=== PATIENT | male | born 1940 | race Caucasian/White ===

== ENCOUNTER 2017-08-28 08:05 | Emergency (ER) | payer OTHER, MEDICARE ==
[~2017-08-28] VITALS: Ht 180.3 cm; Wt 59.9 kg
[~2017-08-28 08:05] MED LIST: KEFLEX500 M1 PO
--- NOTE | 2017-08-28 09:53 | ED DYSPNEA/ASTHMA COMPLAINT ---
History of Present Illness General Chief Complaint: Dyspnea (COPD, CHF, Other) Stated Complaint: SOB, X 1 WEEK Source: patient, old records Exam Limitations: no limitations Vital Signs & Intake/Output Vital Signs & Intake/Output Vital Signs Date Time Temp Pulse Resp B/P B/P Pulse O2 O2 Flow FiO2 Mean Ox Delivery Rate 08/28 1255 99.0 80 20 187/94 94 Room Air 08/28 1059 98.9 74 20 190/88 96 Room Air 08/28 1049 96 Room Air Room Air 08/28 1015 95 08/28 0815 97.3 63 20 183/69 96 Room Air Allergies Coded Allergies: No Known Allergies (07/18/17) Reconcile Medications Albuterol Sulfate (Proair Hfa) 90 MCG HFA.AER.AD 2 PUF INH Q4-6 PRN PRN wheezing Methylprednisolone. (Medrol) 4 MG TAB.DS.PK 1 DP PO AD wheezing 6 on day 1 then reduce by one tablet daily until gone Tamsulosin HCl 0.4 MG CAP.ER.24H 1 CAP PO DAILY urine (Reported) Triage Note: PT TO ED C/O DIFFICULTY BREATHING SINCE THIS AM. STATES HE WAS GETTING UP OOB AND FELT SOB. DENIES ANY PAIN OR C/P. EKG DONE. RA SATS 96%. PT IN NO OBVIOUS RESP DISTRESS. Triage Nurses Notes Reviewed? yes HPI: 77-year-old male with no known medical history active smoker 1 pack per day presents to the ER for evaluation with family saying over the past few weeks she 's had progressively worsening shortness of breath worse with exertion, better at rest. He denies any associated chest pain. Patient reports her chronic nonproductive cough. He has not sought care for the symptoms until today. He denies any abdominal pain nausea vomiting leg swelling recent immobility. No hemoptysis. No dizziness lightheadedness no recent fevers or chills. (Fernando Hawley) Past History Travel History Traveled to [place] past 21 day No Medical History Any Pertinent Medical History? see below for history Surgical History Surgical History: none Psychosocial History What is your primary language Hebrew Tobacco Use: Quit <30 days ago ETOH Use: denies use Illicit Drug Use: denies illicit drug use Family History Hx Contributory? No (Fernando Hawley) Review of Systems Review of Systems Constitutional: Reports: no symptoms, see HPI. Comments Review of systems: See HPI, All other systems negative. Constitutional, no chills no fever HEENT: no sore throat no congestion Cardiovascular: No chest pain Skin: no rashes, no change in skin Respiratory: dyspnea cough no sputum GI: No nausea no vomiting, no diarrhea Muscle skeletal: No joint pain, no back pain, no neck pain, Neurologic: , no headache Psych: No stress Heme/endocrine: No bruising Immunology: No lymphadenopathy (Fernando Hawley) Physical Exam Physical Exam General Appearance: well developed/nourished, no apparent distress, alert, awake Respiratory: wheezing Comments: Well-developed well-nourished person in no acute distress HEENT: Normal EENT exam; PERRL, EOMI, HEAD is atraumatic. moist mucous membranes. Neck: Supple, normal range of motion Back: Full range of motion Cardiovascular: Regular rate and rhythms no murmurs rubs Respiratory: Chest nontender.There were no bony deformities, no asymmetry. No respiratory distress. Patient speaking in full complete sentences. Expiratory wheezes no rhonchi no rales Abdomen: Soft, nontender nondistended, no appreciable organomegaly. Normal bowel sounds. No rebound/guarding, Extremity: No edema, full range of motion of extremities Neuro: Alert oriented x3, motor sensory normal, Skin: No appreciable rash on exposed skin, skin is warm and dry. Psych: Mood and affect is normal, memory and judgment is normal. Core Measures ACS in differential dx? Yes CVA/TIA Diagnosis No Sepsis Present: No Sepsis Focused Exam Completed? No (Fernando Hawley) Progress Differential Diagnosis: asthma, AMI, bronchitis, COPD, pneumonia, pneumothorax, unstable angina Plan of Care: Orders Procedure Date/time Status TROPONIN LEVEL 08/28 1003 Complete COMPREHENSIVE METABOLIC PANEL 08/28 1003 Complete CBC WITHOUT DIFFERENTIAL 08/28 1003 Complete EKG 08/28 0806 Active Laboratory Tests 08/28/17 1040: Anion Gap 10, Estimated GFR > 60, BUN/Creatinine Ratio 20.0, Glucose 107 H, Calcium 9.2, Total Bilirubin 1.5 H, AST 25, ALT 33, Alkaline Phosphatase 131 H , Troponin I < 0.01, Total Protein 7.1, Albumin 3.8, Globulin 3.3, Albumin/ Globulin Ratio 1.2, CBC w Diff NO MAN DIFF REQ, RBC 4.27 L, MCV 94.7 H, MCH 30.5, RDW 12.9, MPV 8.9, Gran % 71.9, Lymphocytes % 21.3, Monocytes % 6.0, Eosinophils % 0.7, Basophils % 0.1, Absolute Granulocytes 5.8, Absolute Lymphocytes 1.7, Absolute Monocytes 0.5, Absolute Eosinophils 0.1, Absolute Basophils 0, PUBS MCHC 32.3 L Labs ordered old records reviewed patient medicated DuoNeb prednisone 60 mg by mouth ambulatory to room 8 in no apparent distress. Case discussed with Dr. talavera agrees with plan Patient reports improvement in symptoms after breathing treatment I discussed with him his x-ray findings and need for CAT scan CASE AND CT scan reviewed with dr talavera who agrees with plan I discussed the patient and his family at length his CAT scan findings and blood work. I discussed with him need for close follow up with his primary care physician as well as information for oncology will be provided. I had a long discussion with the patient regarding return precautions he's M Rosie here in the emergency room with steady gait. He feels comfortable with plan Diagnostic Imaging: Viewed by Me: Radiology Read. Discussed w/RAD: Radiology Read. Radiology Impression: PATIENT: MICHELLE HAYES PRESENT AGE: 77 PATIENT ACCOUNT NO: [id number] : 39 LOCATION: [facility] ORDERING PHYSICIAN: Fernando ZAPIEN SERVICE DATE: 08/28/17 EXAM TYPE: CAT - CT CHEST W IV CONTRAST EXAMINATION: CT CHEST WITH CONTRAST CLINICAL INFORMATION: Shortness of breath. Right lung mass. COMPARISON: Radiograph of the chest from earlier today TECHNIQUE: Multidetector volumetric CT imaging of the chest was obtained after the administration of 95 mL of Optiray 320 intravenous contrast without immediate adverse reactions. Axial MIP volume rendering provided. Sagittal and coronal reformatted images were obtained. DLP: 359 mGy-cm FINDINGS: LUNGS: The central airways are patent. Scattered bronchial filling defects are noted more distally. There is severe emphysema. Biapical pleural thickening noted. Small right and tiny left pleural effusion with associated atelectasis. There is an anterior right upper lobe pulmonary nodule measuring 2.5 x 1.8 cm in transaxial dimension. This measures 2.6 cm CC. The margins are irregular. This abuts the pleural with associated pleural thickening. There is an adjacent nodule which measures 0.8 cm on series 4 image 259. No additional nodules are seen. No pneumothorax. Pleural calcifications are noted anteriorly. MEDIASTINUM: The heart is mildly prominent. Coronary artery calcifications are present. No pericardial effusion. Multiple small mediastinal lymph nodes are present without pathologic enlargement. AXILLA: No lymphadenopathy. UPPER ABDOMEN: Unremarkable. OSSEOUS STRUCTURES: No acute or suspicious osseous abnormality. Mild degenerative changes throughout the spine. IMPRESSION: 2.6 cm maximum dimension right upper lobe pulmonary nodule with irregular margins abutting the pleura with associated pleural thickening and adjacent small nodule. This appearance is suspicious for malignancy, particularly in the setting of severe emphysema. This corresponds with the appearance on the prior radiograph. Small right pleural effusion and tiny left pleural effusion. DICTATED BY: Albert Valladares MD DATE/TIME DICTATED:08/28/171309 FABRICATION DEPARTMENT SUPERVISOR:JOHN DATE/TIME TRANSCRIBED:08/28/171309 CONFIDENTIAL, DO NOT COPY WITHOUT APPROPRIATE AUTHORIZATION. <Electronically signed in Other Vendor System> SIGNED BY: Albert Valladares MD 08/28/171318, PATIENT: MICHELLE HAYES PRESENT AGE: 77 PATIENT ACCOUNT NO: [id number] : 39 LOCATION: [facility] ORDERING PHYSICIAN: Fernando ZAPIEN SERVICE DATE: 08/28/17 EXAM TYPE: RAD - XRY-PORTABLE CHEST XRAY EXAMINATION : XR PORTABLE CHEST CLINICAL INFORMATION: Cough. Dyspnea. COMPARISON: 2007. TECHNIQUE: Portable frontal view of the chest was obtained. FINDINGS: The lungs are well expanded. There is a small right pleural effusion. Likely tiny left pleural effusion as well. Prominent interstitial markings are noted. There is a 2.8 cm focal nodular appearing opacity in the right mid lung near the hilum. Linear left midlung atelectasis. No pneumothorax. The cardiomediastinal silhouette is unchanged, with a calcified aorta. IMPRESSION: Small right pleural effusion. Likely tiny left pleural effusion. Nodular right midlung opacity is nonspecific. This could represent an area of focal pneumonia, although neoplastic process is not excluded. Recommend contrast-enhanced chest CT to further evaluate. This critical result was discussed with Fernando Elliott by telephone at 08/28/2017 10:35 AM and it was ascertained that the content and urgency of the report was understood at the time of direct communication. DICTATED BY: Albert Valladares MD DATE/TIME DICTATED:08/28/171029 FABRICATION DEPARTMENT SUPERVISOR:JOHN DATE/TIME TRANSCRIBED:08/28/171029 CONFIDENTIAL, DO NOT COPY WITHOUT APPROPRIATE AUTHORIZATION. <Electronically signed in Other Vendor System> SIGNED BY: Albert Valladares MD 08/28/17 1040 Initial ED EKG: nsr at 90, pac, no acute st seg changes, normal axis (Fernando Hawley) Departure Departure Time of Disposition: 1330 Disposition: HOME OR SELF CARE Condition: Stable Clinical Impression Primary Impression: Lung mass Secondary Impressions: COPD (chronic obstructive pulmonary disease) Referrals: Luís LOBATO,Margarita (PCP/Family) Zhang LOBATO,Brayden Dorman Additional Instructions: Follow-up with your primary care physician as well as oncologist Dr. neff today. Medrol Dosepak as directed albuterol inhaler as discussed return anytime sooner if her symptoms worsen or you have any other concerns. Departure Forms: Customer Survey General Discharge Information Prescriptions: Current Visit Scripts Albuterol Sulfate (Proair Hfa) 2 PUF INH Q4-6 PRN PRN wheezing #1 INHAL Methylprednisolone. (Medrol) 1 DP PO AD #1 DP 6 on day 1 then reduce by one tablet daily until gone (Fernando Hawley) PA/SCOREKEEPER Co-Sign Statement Statement: ED Attending supervision documentation- x I saw and evaluated the patient. I have also reviewed all the pertinent lab results and diagnostic results. I agree with the findings and the plan of care as documented in the PA's/SCOREKEEPER's documentation. [] I have reviewed the ED Record and agree with the PA's/SCOREKEEPER's documentation. [] Additions or exceptions (if any) to the PAs/SCOREKEEPER's note and plan are summarized below: [] (Maricarmen LOBATO,Paul) Critical Care Note Critical Care Note Critical Care Time: non-applicable (Fernando Hawley)
[2017-08-28] MEDS ORDERED: TAMSULOSIN HCL0.4 M1 PO (10:26)
--- NOTE | 2017-08-28 10:40 | RADIOLOGY REPORT ---
EXAMINATION: XR PORTABLE CHEST CLINICAL INFORMATION: Cough. Dyspnea. COMPARISON: 10/17/2007. TECHNIQUE: Portable frontal view of the chest was obtained. FINDINGS: The lungs are well expanded. There is a small right pleural effusion. Likely tiny left pleural effusion as well. Prominent interstitial markings are noted. There is a 2.8 cm focal nodular appearing opacity in the right mid lung near the hilum. Linear left midlung atelectasis. No pneumothorax. The cardiomediastinal silhouette is unchanged, with a calcified aorta. IMPRESSION: Small right pleural effusion. Likely tiny left pleural effusion. Nodular right midlung opacity is nonspecific. This could represent an area of focal pneumonia, although neoplastic process is not excluded. Recommend contrast-enhanced chest CT to further evaluate. This critical result was discussed with Fernando Elliott by telephone at 08/28/2017 10:35 AM and it was ascertained that the content and urgency of the report was understood at the time of direct communication.
[2017-08-28 10:55] LABS: ABSOLUTE BASOPHIL COUNT 0 /CUMM (0.0-0.2); ABSOLUTE EOSINOPHIL COUNT 0.1 /CUMM (0.0-0.7); ABSOLUTE GRANULOCYTE CT 5.8 /CUMM (1.4-6.5); ABSOLUTE LYMPH COUNT 1.7 /CUMM (1.2-3.4); ABSOLUTE MONOCYTE COUNT 0.5 /CUMM (0.10-0.60); BASOPHIL % 0.1 % (0.0-2.0); EOSINOPHIL % 0.7 % (0-5); GRANULOCYTE % 71.9 % (42.2-75.2); HEMATOCRIT 40.4 % (42-52); MEAN CORPUSCULAR HGB 30.5 PG (27.0-31.0); MEAN CORPUSCULAR HGB CONC 32.3 G/DL (33.0-37.0); MEAN CORPUSCULAR VOLUME 94.7 FL (80.0-94.0); MEAN PLATELET VOLUME 8.9 FL (7.4-10.4); PLATELET COUNT 275 /CUMM (130-400); RBC DISTRIBUTION WIDTH 12.9 % (11.5-14.5); RED BLOOD CELL CT 4.27 /CUMM (4.70-6.10); WHITE BLOOD CELL COUNT 8.1 /CUMM (4.8-10.8)
[2017-08-28 12:55] VITALS: BP 187/94
--- NOTE | 2017-08-28 13:19 | CT SCAN REPORT ---
EXAMINATION: CT CHEST WITH CONTRAST CLINICAL INFORMATION: Shortness of breath. Right lung mass. COMPARISON: Radiograph of the chest from earlier today TECHNIQUE: Multidetector volumetric CT imaging of the chest was obtained after the administration of 95 mL of Optiray 320 intravenous contrast without immediate adverse reactions. Axial MIP volume rendering provided. Sagittal and coronal reformatted images were obtained. DLP: 359 mGy-cm FINDINGS: LUNGS: The central airways are patent. Scattered bronchial filling defects are noted more distally. There is severe emphysema. Biapical pleural thickening noted. Small right and tiny left pleural effusion with associated atelectasis. There is an anterior right upper lobe pulmonary nodule measuring 2.5 x 1.8 cm in transaxial dimension. This measures 2.6 cm CC. The margins are irregular. This abuts the pleural with associated pleural thickening. There is an adjacent nodule which measures 0.8 cm on series 4 image 259. No additional nodules are seen. No pneumothorax. Pleural calcifications are noted anteriorly. MEDIASTINUM: The heart is mildly prominent. Coronary artery calcifications are present. No pericardial effusion. Multiple small mediastinal lymph nodes are present without pathologic enlargement. AXILLA: No lymphadenopathy. UPPER ABDOMEN: Unremarkable. OSSEOUS STRUCTURES: No acute or suspicious osseous abnormality. Mild degenerative changes throughout the spine. IMPRESSION: 2.6 cm maximum dimension right upper lobe pulmonary nodule with irregular margins abutting the pleura with associated pleural thickening and adjacent small nodule. This appearance is suspicious for malignancy, particularly in the setting of severe emphysema. This corresponds with the appearance on the prior radiograph. Small right pleural effusion and tiny left pleural effusion.
[2017-08-28] MEDS ORDERED: MEDROL4 M2 PO (13:32)
[2017-08-28] MEDS ORDERED: PROAIR HFA8.5 GM INH (13:32)
== END 2017-08-28 14:01 ==
LOC: ERH 08:05
PROVIDERS: Physician Assistant Medical
DX: R91.8 Other nonspecific abnormal finding of lung field (principal); J44.9 Chronic obstructive pulmonary disease, unspecified; Z72.0 Tobacco use
CPT/HCPCS: 1263; 71045; 93005; 93010